=== PATIENT | male | born 1945 | race Caucasian/White ===

== ENCOUNTER 2016-10-20 05:48 | Day surgery (SDC) | payer OTHER ==
[2016-10-13 12:12] LABS: MANUAL DIFF NEEDED? NO
[2016-10-13 12:25] LABS: BASO% 0.7 % (0.0-0.8); EOS# 0.13 X1000 (0.0-0.7); EOS% 2.9 % (0.0-10.0); HEMATOCRIT 36.5 % (42.0-52.0); HEMOGLOBIN 12.3 g/dL (14.0-18.0); IMM GRAN# 0.02 X1000 (0.0-0.04); IMM GRAN% 0.4 % (0.0-0.5); LYMPH# 1.07 X1000 (1.2-3.4); LYMPH% 23.6 % (20.5-51.1); MCH 28.5 PG (27-31); MCHC 33.7 g/dL (33-37); MCV 84.5 FL (81-99); MONO# 0.47 X1000 (0.11-0.59); MONO% 10.4 % (1.7-9.3); MPV 11.5 FL (7.4-10.4); PLT 77 X1000 (130-400); RBC 4.32 XMIL (4.7-6.1)
[2016-10-13 12:39] LABS: AGAP 13; BUN 18 mg/dL (8-22); CALCIUM 9.4 mg/dL (8.8-10.2); CHLORIDE 102 mmol/L (98-107); COSMO 288; POTASSIUM 4.4 mmol/L (3.5-5.1); SODIUM 138 mmol/L (136-145); TCO2 23 mmol/L (25-35); URIC ACID 5.7 mg/dL (3.4-7.0)
[2016-10-20] MEDS ORDERED: KEFZOL 2 GM/D5W 0 ML ONE (06:23)
[2016-10-20] MEDS ORDERED: LR 1,000 ML ONE ×2 (06:23→06:41)
[2016-10-20] MEDS ORDERED: REGLAN ONE (06:23)
[2016-10-20] MEDS ORDERED: PEPCID ONE (06:23)
[2016-10-20] MEDS ORDERED: KEFZOL 2 GM/D5W 50 ML ONE (06:41)
[2016-10-20] MEDS ORDERED: DIPRIVAN 1% ONE (09:48)
[2016-10-20] MEDS ORDERED: ZOFRAN ONE (10:12)
[2016-10-20] MEDS ORDERED: XYLOCAINE-MPF 2% ONE (10:13)
[2016-10-20] MEDS ORDERED: EPHEDRINE ONE (10:13)
--- NOTE | 2016-10-20 10:13 | OPERATIVE NOTE ---
PROCEDURE DATE: 10/20/2016 SURGEON: Olvin March MD. PREOPERATIVE DIAGNOSIS: Large left renal pelvic stone. POSTOPERATIVE DIAGNOSIS: Large left renal pelvic stone. PROCEDURE PERFORMED: Extracorporeal shockwave lithotripsy of the left renal pelvic stone. ANESTHESIA: General via laryngeal mask. FINDINGS: An approximate 15 mm in diameter, left renal pelvic stone. INDICATION FOR PROCEDURE: This 71-year-old male with a history of renal lithiasis was noted to have a large left renal pelvic stone as well as a smaller right lower pole stone. DESCRIPTION OF PROCEDURE: After informed consent was obtained from the patient and him receiving IV antibiotics, he was taken the main OR, placed in the supine position. General anesthesia via laryngeal mask was achieved. He was then placed in a proper position for left extracorporeal shockwave lithotripsy. The stone received 3000 shocks, starting at energy level 1, ramping to energy level 7, at a frequency of 90 shocks per minute. He received 12.5 g of mannitol at the start of the case. At completion, the stone appeared well fragmented. Total fluoroscopy time was 2 minutes 18 seconds. Estimated blood loss zero. He was taken to the recovery room in good condition.
[2016-10-20] MEDS ORDERED: FLOMAX ONE (10:19)
[2016-10-20 10:43] VITALS: BP 166/76
== END 2016-10-20 11:02 | disposition home or self-care (01) ==
LOC: OPS 05:48
PROVIDERS: ATTEND Urology
DX: N20.0 Calculus of kidney (principal); Z85.46 Personal history of malignant neoplasm of prostate; Z87.891 Personal history of nicotine dependence
CPT/HCPCS: 80048; 82948; 84550; 85025; J0690; J2405; J7120